=== PATIENT | female | born 1990 | race Two or more races ===

== ENCOUNTER 2018-02-07 00:13 | Emergency (ER) | payer SELFPAY ==
[2018-02-07 00:28] VITALS: BP 135/87; RESP 16; TEMP 98.7
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
[2018-02-07 01:26] VITALS: PULSE 110
[2018-02-07 01:36] VITALS: O2SAT 98
== END 2018-02-07 01:00 | disposition home or self-care (01) ==
LOC: H.ER 00:13 → EDBD 00:13 → H.ER 01:00
DX: F10.10 Alcohol abuse, uncomplicated (principal)